=== PATIENT | male | born 1975 | race Caucasian/White ===

== ENCOUNTER 2023-03-14 14:07 | Outpatient (RCR) | payer BC, SELFPAY | END 2023-03-14 14:54 | disposition home or self-care (01) | LOC: RPT 14:07 | PROVIDERS: ATTENDING PHYSICIAN Family Medicine | DX: M54.16 Radiculopathy, lumbar region (principal); Z73.6 Limitation of activities due to disability | CPT/HCPCS: 97010; 97110; 97112; 97140 ==

== ENCOUNTER 2023-11-17 05:22 | Emergency (ER) | payer BC, SELFPAY ==
[2023-11-17 05:24] VITALS: BP 168/88
[2023-11-17 06:32] VITALS: BMI 40.4
[2023-11-17] MEDS: NSS 1000 IV (07:28)
[2023-11-17 07:48] LABS: % Basophils 0.4 % (0-2); % Eosinophils 0.4 % (0-6); % Immature Granulocytes 0.3 % (0-0.5); % Lymphocytes 18.3 % (20.5-51.1); % Neutrophils 70.6 % (42.2-75.2); Absolute Lymphocytes 1.4 10^3/uL (1.2-3.4); Absolute Monocytes 0.8 10^3/uL (0.1-0.6); Absolute Neutrophils 5.5 10^3/uL (1.4-6.5); Hematocrit 43.4 % (39.0-52.0); Hemoglobin 14.9 g/dL (13.0-18.0); Mean Corp Hgb Conc. 34.3 g/dL (33.0-37.0); Mean Corpuscular Hgb 27.4 pg (27.0-31.0); Mean Corpuscular Volume 79.9 fL (80.0-94.0); Mean Platelet Volume 10.4 fL (7.4-10.4); Nucleated Red Blood Cells % 0 % (-); Platelet Count 195 10^3/uL (130-400); Red Blood Cell Count 5.43 10^6/uL (4.70-6.10); Red Cell Dist. Width 13.9 % (11.5-14.5); White Blood Cell Count 7.8 10^3/uL (4.8-10.8)
[2023-11-17 08:00] LABS: ALT (SGPT) 83 U/L (0-50); AST (SGOT) 57 U/L (17-59); Albumin 4.7 g/dl (3.5-5.0); Alkaline Phosphatase 74 U/L (38-126); Blood Urea Nitrogen 33 mg/dl (9-20); Calcium 9.7 mg/dl (8.4-10.2); Carbon Dioxide 20 mmol/L (22-30); Chloride 108 mmol/L (98-107); Estimated Creatinine Clearance 120 ml/min; Glucose 112 mg/dl (70-99); Potassium 4.5 mmol/L (3.5-5.1); Sodium 137 mmol/L (135-145); Total Bilirubin 0.5 mg/dl (0.2-1.3); Total Protein 7.8 g/dl (6.3-8.2); eGFR > 60.00
[2023-11-17 08:08] VITALS: BP 111/73
--- NOTE | 2023-11-17 08:08 | ED.GENMED ---
History of Present Illness
General
Chief Complaint: Abdominal Symptoms
Source: patient and spouse
Time Seen by Provider: 11/17/23 07:00
History of Present Illness
History of Present Illness:
48-year-old male who presents diarrhea. The patient states that he was recently up in the [place] at the house and started diarrhea on Saturday. Notes that everybody in the house developed diarrhea. Most people have resolved but 1 other male in the
house also continues to have diarrhea. Patient states he thought his get better but last night it came back in and did vomit twice while in the shower this morning. Patient reports that he has a little bit of cramping but not much pain. Has been
able to eat okay but has lost 15 pounds over the week. He called a 24-hour [facility] advised him to come to the hospital. Denies melena or hematochezia.
Past History
Past History
ED Past Medical History: GERD and Other ('Borderline' diabetes, gout)
Phy Exam
Physical Exam
Physical Exam:
CONSTITUTIONAL Patient alert and oriented to person, place and time. Well-appearing. Vital signs reviewed.
HEAD atraumatic, normocephalic.
EYES eyelids normal to inspection, Extraocular muscles intact, Conjunctiva normal, Sclera normal.
NECK normal range of motion, Trachea midline, no jugular venous distention.
RESPIRATORY CHEST No respiratory distress noted, Chest expansion equal, Bilateral breath sounds clear.
CARDIOVASCULAR regular rate and rhythm, Heart sounds normal.
ABDOMEN abdomen nontender, Bowel sounds normal. No distention.
BACK normal inspection, no obvious deformities
UPPER EXTREMITY range of motion normal, Motor strength normal, no cyanosis, no edema.
LOWER EXTREMITY range of motion normal, Motor strength normal, no cyanosis, no edema.
NEURO Speech normal, No focal motor deficits, [place] coma scale 15, Memory normal, Cranial Nerves intact to screening exam.
SKIN skin warm, dry, and normal in color.
PSYCHIATRIC patient oriented to person place and time, Normal affect.
Course
Orders/Labs/Results
Orders:
Orders
11/17/23 07:13
0.9% Sodium Chloride 1000 ml [Nss] 1,000 ml IV BOLUS
11/17/23 07:23
Complete Blood Count/With Diff Urgent
Comprehensive Metabolic Panel Urgent
11/17/23 07:25
Norovirus by PCR Urgent
[facility] Source: Feces/Stool
Specimen Description:
Date Specimen was Collected: 11/17/23
Time Specimen was Collected: 07:24
Ova & Parasites Giardia/Crypto AG [Giardia/Cryptosporidium Ag] Urgent
[facility] Source: Feces/Stool
Specimen Description:
Date Specimen was Collected: 11/17/23
Time Specimen was Collected: 07:25
STOOL [C difficile Antigen & Toxins] Urgent
[facility] Source: Feces/Stool
Specimen Description:
Date Specimen was Collected: 11/17/23
Time Specimen was Collected: 07:24
Stool Culture Urgent
[facility] Source: Feces/Stool
Specimen Description:
Date Specimen was Collected: 11/17/23
Time Specimen was Collected: 07:24
Abnormal Lab Results
11/17/23
07:23
MCV 79.9 L fL
(80.0-94.0)
Absolute Monos (auto) 0.8 H 10^3/uL
(0.1-0.6)
Lymphocytes % 18.3 L %
(20.5-51.1)
Monocytes % 10.0 H %
(1.7-9.3)
Chloride 108 H mmol/L
(98-107)
Carbon Dioxide 20 L mmol/L
(22-30)
BUN 33 H mg/dl
(9-20)
Glucose 112 H mg/dl
(70-99)
ALT 83 H U/L
(0-50)
11/17/23 07:23
11/17/23 07:23
Vital Signs
Initial and Last Documented VS:
Initial Vital Signs
Temp Pulse Resp BP Pulse Ox
98.1 F 98 26 168/88 100
11/17/23 05:24 11/17/23 05:24 11/17/23 05:24 11/17/23 05:24 11/17/23 05:24
Last Documented Vital Signs
Temp Pulse Resp BP Pulse Ox
98.1 F 98 26 168/88 100
11/17/23 05:24 11/17/23 05:24 11/17/23 05:24 11/17/23 05:24 11/17/23 05:24
MDM/Problems Addressed
Differential Diagnosis Includes:
Cryptosporidium, Salmonella, Shigella, E. coli, norovirus, viral enteritis
MDM/Problems Addressed:
Infectious diarrhea
*Pulse Oximetry
Patient hypoxic: no
*Critical Care Note
Total Time (30-74mins, 75-104mins- exclusive of procedures): Not Applicable
Data Reviewed
Source: patient and spouse
Prescriptions/Medications Considered But Not Given:
Consider antibiotics but await cultures
Patient Management
Escalation/DeEscalation of care consider admission/obs:
Consider antibiotics but await cultures as we were able to get a sample. Patient appears well and white count okay. Abdomen benign. Okay for discharge. Recommended increase fluid intake and will follow-up on cultures. Antibiotics if symptoms
persist and cultures warrant. Most people in house have resolved without treatment
ED Attending Note
-
Portions of this chart may have been created with voice recognition software.� Occasional wrong word or��sound alike� substitutions may have occurred due to the inherent limitations of voice recognition software.
Discharge Plan
Departure
Patient Disposition: Home (Routine Discharge)
Date of Disposition: 11/17/23
Time of Disposition: 08:12
Patient with high blood pressure during this ER visit?: Yes
Discharge Problem:
Acute infectious diarrhea
Instructions: Acute Diarrhea, BLOOD PRESSURE
Prescriptions:
No Action
metformin 500 mg Tablet
1,000 mg PO DAILY
allopurinol 100 mg Tablet
100 mg PO DAILY
omeprazole 20 mg Capsule,Delayed Release(Dr/Ec)
20 mg PO DAILY
escitalopram oxalate [Lexapro] 20 mg Tablet
20 mg PO DAILY
Referrals:
Kena Ferguson MD [Family Provider] -
Activity Restrictions/Additional Instructions:
Please see your doctor in the next 3 to 5 days for follow-up and reevaluation. Stool cultures are pending. If your cultures are abnormal, someone will call you to advise further treatment. Return immediately for bloody diarrhea, fever, abdominal
pain or any other concerns. Please be sure to drink plenty of fluids and stick to a low residue diet.
Interventions
Interventions:
*Risk Screen - Suicide Last Done: 11/17/23 05:24
*General Assessment Last Done: 11/17/23 06:32
*Neglect/Abuse Screening Last Done: 11/17/23 05:24
ED- Fall Risk Assessment Last Done: 11/17/23 07:47
*ED COVID-19 Vaccine History Last Done: 11/17/23 06:32
UA-Lkatqo-Izoirqwlzi Assessment Last Done: 11/17/23 07:47
Discharge Date and Time
Print Language: TURKISH
== END 2023-11-17 08:46 | disposition home or self-care (01) ==
LOC: EMR 05:22
PROVIDERS: EMERGENCY PHYSICIAN Emergency Medicine; FAMILY PHYSICIAN Family Medicine
DX: A09 Infectious gastroenteritis and colitis, unspecified (principal); R19.7 Diarrhea, unspecified; R03.0 Elevated blood-pressure reading, without diagnosis of hypertension; K21.9 Gastro-esophageal reflux disease without esophagitis; M10.9 Gout, unspecified; Z88.1 Allergy status to other antibiotic agents
CPT/HCPCS: 99284; 80053; 85025; 87045; 87046; 87324; 87328; 87329; 87427; 87449; 87798

== ENCOUNTER 2024-07-02 06:16 | Day surgery (SDC) | payer BC, SELFPAY ==
[2024-07-02 07:18] LABS: Glucose - Point of Care 125 mg/dl (70-99)
== END 2024-07-02 08:41 | disposition home or self-care (01) ==
LOC: GI 06:16
PROVIDERS: ATTENDING PHYSICIAN Internal Medicine
DX: Z12.11 Encounter for screening for malignant neoplasm of colon (principal); K57.30 Diverticulosis of large intestine without perforation or abscess without bleeding; K63.5 Polyp of colon
CPT/HCPCS: 45380; 88305; 82962

== ENCOUNTER → 2025-02-09 13:10 | Outpatient (REF) | payer BC, SELFPAY | LOC: DHSLP 13:10 | PROVIDERS: ATTENDING PHYSICIAN Internal Medicine Critical Care Medicine; FAMILY PHYSICIAN Family Medicine | DX: G47.33 Obstructive sleep apnea (adult) (pediatric) (principal); R09.02 Hypoxemia | CPT/HCPCS: 95800 ==